=== PATIENT | female | born 1950 | race Caucasian/White ===

== ENCOUNTER 2018-06-05 16:26 | Observation (INO) ==
[~2018-06-05 16:26] MED LIST: LIDOCAINE W/ SODIUM BICARB 0.5 ML SYR ONE; LIDOCAINE W/ SODIUM BICARB 0.5 ML SYR SUBD ONE; Lactated Ringers 1,000 ML PRIMARY IV ONE; Nasal Sanitizer POPSWAB ampule 3 AMP (Nozin) PREOP DOSE ENOS SCH; ceFAZolin Inj 2gm (Premix) 2 GM/50 ML BAG IV ONE
[2018-06-05] MEDS: Lactated Ringers 1,000 ML PRIMARY IV SCH ×2 (17:15→21:05)
[2018-06-05] MEDS ORDERED: EPINEPHrine Inj (1:1,000) 30mg/30ml vial ONE (17:18)
[2018-06-05] MEDS ORDERED: BUPivacaine Inj 0.25% PF - 10ml vial ONE ×2 (17:18→18:31)
[2018-06-05] MEDS ORDERED: MIDAZOLAM HCL 2 MG/2 ML VIAL ONE (17:27)
[2018-06-05] MEDS ORDERED: KETAMINE 100 MG/1 ML - 5 ML ONE (17:27)
[2018-06-05] MEDS ORDERED: fentaNYL Inj 100 MCG/2 ML VIAL ONE (17:27)
[2018-06-05] MEDS ORDERED: PROPOFOL 10 MG/1 ML (200 MG/20 ML) VIAL IV ONE (17:35)
[2018-06-05] MEDS ORDERED: FAMOTIDINE 20 MG/2 ML VIAL IVP ONE (18:00)
[2018-06-05] MEDS ORDERED: BETAMET ACET/BETAMET NA PH 6 MG/1 ML - 5 ML ONE (18:31)
[2018-06-05] MEDS ORDERED: Prochlorperazine Edisylate Inj 10mg/2ml vial IVP PRN (19:05)
[2018-06-05] MEDS ORDERED: HYDROmorphone 2 MG/1 ML IVP PRN (19:05)
[2018-06-05] MEDS ORDERED: LIDOCAINE W/ SODIUM BICARB 0.5 ML SYR SUBD PRN (19:05)
[2018-06-05] MEDS ORDERED: ATROPINE SULFATE 0.4 MG/1 ML VIAL IVP PRN (19:05)
--- NOTE | 2018-06-05 19:07 | CRNA.PROGR ---
Anesthesia Time - Procedure/Recovery Time Start Date: 06/05/18 End Date: 06/05/18 Anesthesia : Time In: 17:40 Anesthesia : Time Out: 18:45 Anesthesia : Total Time: 65 - Total Anesthesia Time Total Anesthesia Time (minutes): 65 - Other Weight: 106.141 kg Height: 5 ft 7 in Body Mass Index (BMI): 36.6 Physical Status: P3 Anesthesia Type: General Anesthesia : LMA
--- NOTE | 2018-06-05 19:08 | CRNA.PROGR ---
Post Anesthesia Phase II - Post Anesthesia Phase II Patient Stable and Discharged To: Phase II Care Assumed By Surgeon: Kayden Browning MD Temperature: 98.2 F Pulse Rate: 83 Respiratory Rate: 23 Blood Pressure: 158/72 Pulse Ox: 97 Total Jose Score at Discharge: 9 Post Anesthesia Discharge Criteria Met: Yes Additional Details: Treated for nausea/emesis with compazine.
[2018-06-05] MEDS ORDERED: Prochlorperazine Edisylate Inj 10mg/2ml vial ONE (19:13)
[2018-06-05] MEDS ORDERED: Lactated Ringers 1,000 ML PRIMARY IV SCH (19:15)
[2018-06-05] MEDS ORDERED: HYDROcodone-APAP 7.5 MG-325 MG TABLET PO SCH (20:00)
[2018-06-05] MEDS ORDERED: ONDANSETRON 4 MG/2 ML VIAL IVP PRN (20:56)
[2018-06-05] MEDS ORDERED: Lactated Ringers 1,000 ML PRIMARY IV ONE (21:12)
[2018-06-05] MEDS ORDERED: FLUTICASONE FUROATE 50 MCG IH SCH (23:00)
[2018-06-05] MEDS ORDERED: SCOPOLAMINE HYDROBROMIDE 1.5 MG - 1 EACH PATCH TRANSDERM ONE (23:00)
--- NOTE | 2018-06-05 23:08 | DI ---
EXAM: XR Chest, 1 View CLINICAL HISTORY: ITS.REASON hypoxia Physician Notes: Tech Comments: TECHNIQUE: Frontal view of the chest. COMPARISON: No relevant prior studies available. FINDINGS: Lungs: Unremarkable. No consolidation. Pleural space: Unremarkable. No pneumothorax. Heart: Unremarkable. No cardiomegaly. Mediastinum: Unremarkable. Bones/joints: Unremarkable. IMPRESSION: Normal exam for age.
--- NOTE | 2018-06-05 23:12 | PDOC ---
HPI - History of Present Illness Date of Service: 06/05/18 Time of Service: 23:10 Chief Complaint: Hypoxic after surgery History of Present Illness: This very pleasant 67-year-old female with a history of borderline diabetes, hypertension, and recent left-sided meniscal tear which was repaired in the operating room today under arthroscopic surgery by Dr. Browning. Please see his note regarding the procedure. Postoperatively, the patient developed hypoxia and required oxygen. She does not have oxygen at home. She does not have any history of obstructive sleep apnea although her does report that she snores at night. She denied any chest pain, but has had some nausea and vomiting. 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 She had chronic nausea and vomiting develop and persist for about 4-1/2 years and it finally resolved around mid 2015. She states that the nausea and vomiting came back after his sinus surgery, and scopolamine seemed to help her. She did not think to bring it down with her today. She states that she is feeling somewhat better and is now down to 3 L per nasal cannula oxygen. I did have an x-ray done and on my view of the chest x-ray, there may be some left-sided atelectasis in the bases. She just got Zofran which seems to be helping with her nausea to some degree. She states to me that she's had a hard time coming out of anesthesia on the last few surgery she' s had. She does not have any underlying breathing disorder such as asthma or COPD, and states that she does not have any problems with excessive daytime sleepiness. 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 Past Medical History Medical History: 1. Diabetes mellitus type II. 2. Hypertension. 3. Meniscal tear. 4. Hypercholesterolemia Surgical History: 1. Neck surgery 2. 2. Meniscal repair today on left knee. 3. Hysterectomy. 4. Cholecystectomy Pertinent Family History: No history of diabetes or heart disease. Past Social History: Does not smoke or drink. for 50 years. Has children and one son unfortunately has had some problems with valvular heart disease. 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 Lives in [place], [place]. Tobacco Use: Never Smoker In the Past 12 Months, Have Used or Abuse Any of the Following Substance: None Medication / Allergies Home Medications: Home Medications 3 Medication Instructions Recorded Confirmed Type Amlodipine Besylate [Norvasc] 5 mg PO DAILY 06/04/18 06/04/18 History Aspirin [Aspir 81] 81 mg PO DAILY 06/04/18 06/04/18 History Atorvastatin Calcium [Lipitor] 20 mg PO DAILY 06/04/18 06/04/18 History Butalbital/Acetaminophen 50 mg PO PRN 06/04/18 06/04/18 History [Butalbital-Acetaminophn 50-325] Fluticasone Furoate [Arnuity 50 mcg IH PRN 06/04/18 06/04/18 History Ellipta] Lansoprazole Solutab Tab 30 mg PO DAILY 06/04/18 06/04/18 History [Prevacid Solutab Tab] Levalbuterol Neb Soln [Xopenex Neb 1.25 mg NEB PRN 06/04/18 06/04/18 History Soln] Losartan Potassium 100 mg PO DAILY 06/04/18 06/04/18 History Metformin HCl [Metformin HCl ER] 500 mg PO BID 06/04/18 06/04/18 History Montelukast Sodium [Singulair] 10 mg PO DAILY 06/04/18 06/04/18 History Promethazine HCl [Phenergan] 25 mg PO DAILY PRN 06/04/18 06/04/18 History Hydrocodone/Acetaminophen 1 - 2 ea PO Q4H PRN #40 tab 06/05/18 Rx [Hydrocodon-Acetaminoph 7.5-325] Allergies/Adverse Reactions: Allergies 3 Allergy/AdvReac Type Severity Reaction Status Date / Time dexamethasone Allergy NOT Verified 06/04/18 17:03 APPLICABLE gabapentin Allergy NOT Verified 06/04/18 17:03 APPLICABLE levofloxacin [From Levaquin] Allergy NOT Verified 06/04/18 17:03 APPLICABLE Review of Systems - Respiratory Respiratory: REPORTS: Negative System Review - Cardiovascular Cardiovascular: REPORTS: Negative System Review - Gastrointestinal Gastrointestinal / Abdominal: REPORTS: Nausea, Vomiting (Have happened chronically and intermittently and seemsto happen after surgery.) - Genitourinary Genitourinary: REPORTS: Negative System Review Exam - Vitals Vital Signs: Vital Signs Temperature 97.2 F Temperature Source Temporal Artery Scan Pulse Rate [Pulse Oximeter 90 Left] Pulse Rate 74 Respiratory Rate 15 Blood Pressure [Left Arm] 131/60 Blood Pressure 121/55 Pulse Ox 97 Oxygen Flow Rate 2 Oxygen Delivery Method Nasal Cannula Height 5 ft 7 in Weight 234 lb - General General Appearance: No Acute Distress, Cooperative - Head Head Exam: Normal Inspection, Normocephalic, Atraumatic - Eye Eye Exam: POSITIVE: No Scleral Icterus - ENT ENT Exam: POSITIVE: Mucous Membranes Dry - Respiratory Respiratory Exam: POSITIVE: Clear to Auscultation - Bilaterally, Breathing Non Labored - Cardiovascular Cardiovascular Exam: POSITIVE: RRR, No Murmur, No Clicks, No Gallops, No Rubs, No JVD - GI/Abdominal GI/Abdominal Exam: POSITIVE: Normal Bowel Sounds, Non Tender, Non Distended, Soft - Rectal Rectal Exam: POSITIVE: Deferred - External Exam: POSITIVE: Deferred Exam: POSITIVE: Deferred - Extremities Extremities Exam: POSITIVE: No Clubbing Present, No Edema Present, No Cyanosis Present Additional Extremities Exam Details: Left knee is dressed, dressing is clean, dry, intact - Neurological Neurological Exam: POSITIVE: Alert, Oriented x 3, No Facial Droop, Speech Intact / Clear - Psychiatric Psychiatric Exam: POSITIVE: Normal Affect, Normal Mood - Integumentary Additional Integumentary Exam Details: I did not notice any rash, specifically no petechial rash. Results - Labs Additional Lab Results: I am going to order a CBC with differential, compress metabolic panel, and a brain natruretic peptide (NT proBNP) Assessment and Plan - Patient Problems (1) Postoperative hypoxia Current Visit: Yes Status: Acute Code(s): R09.02 - Hypoxemia; Z98.890 - Other specified postprocedural states (2) Hypertension Current Visit: Yes Status: Acute Code(s): I10 - Essential (primary) hypertension Qualifiers: Hypertension type: essential hypertension Qualified Code(s): I10 - Essential (primary) hypertension (3) Diabetes Current Visit: Yes Status: Acute Code(s): E11.9 - Type 2 diabetes mellitus without complications Qualifiers: Diabetes mellitus type: type 2 Diabetes mellitus complication status: without complication (4) Acute meniscal tear of left knee Current Visit: Yes Status: Acute Code(s): S83.207A - Unspecified tear of unspecified meniscus, current injury, left knee, initial encounter - Assessment / Plan Additional Assessment/Plan Details: Overall, based on history and physical exam, I think that this is likely related to postoperative hypoxia from anesthesia. On the chest x-ray, there is no evidence of pneumonia and no evidence of aspiration pneumonia specifically. I suspect that she has some atelectasis based on the chest x-ray and is probably in need of incentive spirometry. I will order some incentive spirometry. We'll check a CBC and a CMP and a brain natruretic peptide (NT proBNP) in morning. If there is any elevation in NT proBNP, I would recommend an echocardiogram but that could be done on an outpatient basis. Given her history of snoring, she certainly could have obstructive sleep apnea which I do see contributive to postoperative hypoxia in cases in the past, and I would recommend that the patient have an outpatient sleep study at the purview of her primary care provider, Dr. Cosby, in [place], [place]. Scopolamine patch for the nausea and vomiting as this is working for her in the past. Thank you for this consult, will be our pleasure to continue to advise on medical conditions during the patient's hospital stay for this meniscal surgery.
--- NOTE | 2018-06-05 23:43 | EKG ---
[address] [address] Measurements Intervals [place] Rate: 85 P: 43 NC: 207 QRS: 11 QRSD: 97 T: 55 QT: 390 QTc: 432 Interpretive Statements SINUS RHYTHM WITH SINUS ARRHYTHMIA NONSPECIFIC T-WAVE ABNORMALITY No previous ECG available for comparison Electronically Signed On 06-06-18 09:25:08 MST by Momo Morgan MD [email or web address]
[2018-06-05] MEDS: HYDROcodone-APAP 7.5 MG-325 MG TABLET PO PRN (23:51)
[2018-06-06 00:17] LABS: VENOUS PH 7.35 (7.32-7.42)
[2018-06-06] MEDS: Lactated Ringers 1,000 ML PRIMARY IV SCH ×2 (02:06→10:47)
[2018-06-06] MEDS: HYDROcodone-APAP 7.5 MG-325 MG TABLET PO PRN ×3 (03:39→12:58)
[2018-06-06 05:51] LABS: BASOPHILS # (AUTO) 0.02 10*3/UL; BASOPHILS % (AUTO) 0.2 % (0-1); EOSINOPHILS # (AUTO) 0.01 10*3/UL; EOSINOPHILS % (AUTO) 0.1 % (0-8); Hematocrit [HCT] 40.9 % (37.0-47.0); Hemoglobin [HGB] 13.1 g/dL (12.0-16.0); LYMPHOCYTES # (AUTO) 1.37 10*3/uL; MEAN CORPUSCULAR HEMOGLOBIN 29.2 PG (27-31); MEAN CORPUSCULAR VOLUME 91.1 FL (81-99); MONOCYTES # (AUTO) 0.16 10*3/UL (0.3-0.8); MONOCYTES % (AUTO) 1.4 % (5-15); NEUTROPHILS # (AUTO) 10.23 10*3/UL; NEUTROPHILS % (AUTO) 86.5 % (50-80); RED BLOOD COUNT 4.49 10^6/uL (4.20-5.40)
[2018-06-06 06:07] LABS: BLOOD UREA NITROGEN 14 mg/dL (7-22); SERUM ALBUMIN 4.2 g/dL (3.5-4.8)
[2018-06-06 06:31] LABS: PLATELET MORPHOLOGY COMMENT NORMAL MORPHOLOGY (NORM); RBC MORPHOLOGY COMMENT NORMAL MORPHOLOGY (NORM); WBC MORPHOLOGY COMMENT NORMAL MORPHOLOGY (NORM)
[2018-06-06] MEDS ORDERED: LANSOPRAZOLE 30 MG SOLUTAB PO SCH (07:00)
[2018-06-06 07:47] VITALS: BP 172/90; TEMP 97.6; O2SAT 93
--- NOTE | 2018-06-06 08:45 | ORTHO.PROG ---
Last Taken Vital Signs: Vital Signs - Last Taken Temperature 97.6 F 06/06/18 07:46 Pulse Rate 102 H 06/06/18 07:46 Respiratory Rate 20 06/06/18 07:46 Blood Pressure 172/90 06/06/18 07:46 Pulse Ox 93 06/06/18 07:46 Subjective: comfortable off of O2 Objective: comfortable at rest Intake and Output (24hr x 4 totals) 06/04/18 06/05/18 06/06/18 06/07/18 05:59 05:59 05:59 05:59 Intake Total 2551 / 2551 Output Total 1720 / 1720 900 / 900 Balance 831 / 831 -900 / -900 Abnormal Lab Results (Last 24 Hours) Range/Units 06/06/18 06/06/18 06/06/18 00:08 05:10 05:10 WBC (4.8-10.8) 10^3/uL 11.81 H MCHC (33-37) g/dL 32.0 L Plt Count (140-350) 10*3/uL 434 H Neut % (Auto) (50-80) % 86.5 H [place] % (Auto) (5-15) % 1.4 L [place] # (Auto) (0.3-0.8) 10*3/UL 0.16 L VBG pCO2 (45-55) mmHg 44 L Glucose (78-110) mg/dL 156 H Calculated Osmolality (267-292) mOsm/kg 295.0 H Total Bilirubin (0.3-1.2) mg/dL 0.2 L NT-Pro-B Natriuret Pep (0-125) PG/ML Range/Units 06/06/18 05:10 WBC (4.8-10.8) 10^3/uL MCHC (33-37) g/dL Plt Count (140-350) 10*3/uL Neut % (Auto) (50-80) % [place] % (Auto) (5-15) % [place] # (Auto) (0.3-0.8) 10*3/UL VBG pCO2 (45-55) mmHg Glucose (78-110) mg/dL Calculated Osmolality (267-292) mOsm/kg Total Bilirubin (0.3-1.2) mg/dL NT-Pro-B Natriuret Pep (0-125) PG/ML 445 H Vital Signs (24 hrs) Temp Pulse Pulse Resp BP BP Pulse Ox 06/06/18 07:46 97.6 F 102 H 20 172/90 93 06/06/18 05:36 92 06/06/18 04:18 97.7 F 101 H 11 L 127/77 95 06/06/18 03:00 94 06/06/18 00:03 97.6 F 93 19 127/89 94 06/05/18 23:00 87 06/05/18 21:53 90 15 131/60 97 06/05/18 21:20 78 13 128/76 95 06/05/18 21:12 97.2 F 84 16 131/60 96 06/05/18 21:00 74 121/55 93 06/05/18 20:45 74 126/56 94 06/05/18 20:30 66 116/50 95 06/05/18 20:15 73 118/59 92 06/05/18 20:00 78 141/67 97 06/05/18 19:45 66 121/62 91 06/05/18 19:30 94 127/54 95 06/05/18 19:15 69 114/69 94 06/05/18 19:08 98.2 F 83 23 158/72 97 06/05/18 19:00 70 118/68 96 06/05/18 18:45 97.2 F 79 135/75 92 06/05/18 17:53 98.2 F 83 23 158/72 97 Vital Signs (24 hrs) Temp Pulse Pulse Resp BP BP Pulse Ox 06/06/18 07:46 97.6 F 102 H 20 172/90 93 06/06/18 05:36 92 06/06/18 04:18 97.7 F 101 H 11 L 127/77 95 06/06/18 03:00 94 06/06/18 00:03 97.6 F 93 19 127/89 94 06/05/18 23:00 87 06/05/18 21:53 90 15 131/60 97 06/05/18 21:20 78 13 128/76 95 06/05/18 21:12 97.2 F 84 16 131/60 96 06/05/18 21:00 74 121/55 93 06/05/18 20:45 74 126/56 94 06/05/18 20:30 66 116/50 95 06/05/18 20:15 73 118/59 92 06/05/18 20:00 78 141/67 97 06/05/18 19:45 66 121/62 91 06/05/18 19:30 94 127/54 95 06/05/18 19:15 69 114/69 94 06/05/18 19:08 98.2 F 83 23 158/72 97 06/05/18 19:00 70 118/68 96 06/05/18 18:45 97.2 F 79 135/75 92 06/05/18 17:53 98.2 F 83 23 158/72 97 Assessment: satting well Plan: DC home per hospitalist recs
[2018-06-06] MEDS ORDERED: ATORVASTATIN 20 MG TABLET PO SCH ×2 (09:00→21:00)
[2018-06-06] MEDS ORDERED: AmLODIPine Tab 5 MG TABLET PO SCH (09:00)
[2018-06-06] MEDS ORDERED: ASPIRIN EC 81 MG TABLET PO SCH (09:00)
[2018-06-06] MEDS ORDERED: LOSARTAN 50 MG TABLET PO SCH (09:00)
[2018-06-06] MEDS ORDERED: metFORMIN ER 500 MG TABLET PO SCH (09:00)
[2018-06-06] MEDS ORDERED: Montelukast Tab 10 MG TAB PO SCH (09:00)
--- NOTE | 2018-06-06 11:11 | DCSUMMARY ---
Hospitalization Summary Admit Date: 06/05/2018 Discharge Date: 06/06/18 Primary Diagnosis:: postoperative hypoxia, resolved Hospital Course: This very pleasant 67-year-old female who had a left meniscal injury that was repaired by Dr. Browning. See his notes on that surgical procedure. Postoperatively, the patient was persistently hypoxic and she was admitted to the hospitalist service for observation for postoperative hypoxia. The patient has never had any a diagnosis of obstructive sleep apnea but does snore frequently according to her . She does not have any other features of sleep apnea in terms of waking up gasping for air or daytime somnolence. 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 A chest x-ray was negative for pneumonia but on my view was consistent with atelectasis. There was no evidence of pneumonia clinically either. The radiologist read the chest x-ray is normal. EKG was normal and troponin was negative. A venous blood gas did not reveal significant hypercapnia. A BNP menses NT proBNP), was minimally elevated. I started incentive spirometry and by the morning the patient had oxygen saturations on room air on my examination of 94-97%. The patient states her knee pain is controlled at this point, she denies any nausea or vomiting and states that that has improved significantly with scopolamine patch. And she denies any chest pain or shortness of breath. She would like to go home. Assessment and Plan: 1. As per discharge assessments noted 2. Disposition: Patient is discharged home 3. Condition on discharge, stable and improved. 4. Diet: regular diet 5. Activities: Resume activities as per Dr. Browning's instructions 6. Follow-Up: 1. I recommend seeing Dr. Cosby in [address] Browning as per his instructions 7. Medications at the Time of Discharge: Home Medications 3 Medication Instructions Recorded Confirmed Type Amlodipine Besylate [Norvasc] 5 mg PO DAILY 06/04/18 06/04/18 History Aspirin [Aspir 81] 81 mg PO DAILY 06/04/18 06/04/18 History Atorvastatin Calcium [Lipitor] 20 mg PO DAILY 06/04/18 06/04/18 History Butalbital/Acetaminophen 50 mg PO PRN 06/04/18 06/04/18 History [Butalbital-Acetaminophn 50-325] Fluticasone Furoate [Arnuity 50 mcg IH PRN 06/04/18 06/04/18 History Ellipta] Lansoprazole Solutab Tab 30 mg PO DAILY 06/04/18 06/04/18 History [Prevacid Solutab Tab] Levalbuterol Neb Soln [Xopenex Neb 1.25 mg NEB PRN 06/04/18 06/04/18 History Soln] Losartan Potassium 100 mg PO DAILY 06/04/18 06/04/18 History Metformin HCl [Metformin HCl ER] 500 mg PO BID 06/04/18 06/04/18 History Montelukast Sodium [Singulair] 10 mg PO DAILY 06/04/18 06/04/18 History Promethazine HCl [Phenergan] 25 mg PO DAILY PRN 06/04/18 06/04/18 History Hydrocodone/Acetaminophen 1 - 2 ea PO Q4H PRN #40 tab 06/05/18 Rx [Hydrocodon-Acetaminoph 7.5-325] HYDROcodone/APAP 7.5/325 Tab 1 - 2 tab PO Q4H PRN #30 tab 06/06/18 Rx [[place] 7.5/325 Tab] Scopolamine 1.5mg Patch 1 ea TD Q72H PRN #2 patch.td72 06/06/18 Rx [Transderm-Scop 1.5mg Patch] Exam - Vitals Vital Signs: Vital Signs Temperature 97.6 F Temperature Source Temporal Artery Scan Pulse Rate [Pulse Oximeter 102 Left] Pulse Rate 94 Respiratory Rate 20 Blood Pressure [Left Arm] 172/90 Blood Pressure 121/55 Pulse Ox 93 Oxygen Flow Rate 1.5 Oxygen Delivery Method Nasal Cannula Height 5 ft 7 in Weight 234 lb - General General Appearance: No Acute Distress, Cooperative - Eye Eye Exam: POSITIVE: No Scleral Icterus - ENT ENT Exam: POSITIVE: Mucous Membranes Moist - Neck Neck Exam: JVP is not Raised - Respiratory Respiratory Exam: POSITIVE: Clear to Auscultation - Bilaterally, Breathing Non Labored - Cardiovascular Cardiovascular Exam: POSITIVE: RRR, No Murmur, No Clicks, No Gallops, No Rubs, No JVD - GI/Abdominal GI/Abdominal Exam: POSITIVE: Normal Bowel Sounds, Non Tender, Non Distended, Soft - Extremities Extremities Exam: POSITIVE: No Clubbing Present, No Edema Present, No Cyanosis Present Additional Extremities Exam Details: Left knee is bandaged. Bandages clean, dry, intact - Neurological Neurological Exam: POSITIVE: Alert, Oriented x 3, No Facial Droop, Speech Intact / Clear - Psychiatric Psychiatric Exam: POSITIVE: Normal Affect, Normal Mood Data Peritnent Studies: Laboratory Results 06/05/18 06/06/18 06/06/18 Range/Units 00:00 00:08 05:10 WBC 11.81 H (4.8-10.8) 10^3/uL RBC 4.49 (4.20-5.40) 10^6/uL Hgb 13.1 (12.0-16.0) g/dL Hct 40.9 (37.0-47.0) % MCV 91.1 (81-99) FL MCH 29.2 (27-31) PG MCHC 32.0 L (33-37) g/dL RDW Std Deviation 47.5 (39-50) fL RDW Coeff of [place] 14.4 (11.5-14.5) % Plt Count 434 H (140-350) 10*3/uL MPV 9.0 (7.4-12.2) FL Immature Gran % (Auto) 0.2 (0-5) % Neut % (Auto) 86.5 H (50-80) % Lymph % (Auto) 11.6 (10-50) % [place] % (Auto) 1.4 L (5-15) % Eos % (Auto) 0.1 (0-8) % Baso % (Auto) 0.2 (0-1) % Immature Gran # (Auto) 0.02 10*3/UL Neut # (Auto) 10.23 10*3/UL Lymph # (Auto) 1.37 10*3/uL [place] # (Auto) 0.16 L (0.3-0.8) 10*3/UL Eos # (Auto) 0.01 10*3/UL Baso # (Auto) 0.02 10*3/UL WBC Morphology Comment Normal morphology (NORM) Plt Morphology Comment Normal morphology (NORM) RBC Morph Comment Normal morphology (NORM) VBG pH 7.35 (7.32-7.42) VBG pCO2 44 L (45-55) mmHg VBG HCO3 24 (22-26) mmol/L VBG Base Excess -2 (-2-2) MMOL/L Sodium (135-145) meq/L Potassium (3.8-5.2) meq/L Chloride (98-112) meq/L Carbon Dioxide (23-33) meq/L Anion Gap (5-20) BUN (7-22) mg/dL Creatinine (0.50-1.20) mg/dL Estimated GFR (>60 ml/min/1.73m(2)) BUN/Creatinine Ratio (6-20) Glucose (78-110) mg/dL Calculated Osmolality (267-292) mOsm/kg Calcium (8.7-10.7) mg/dL Total Bilirubin (0.3-1.2) mg/dL AST (8-39) IU/L ALT (9-52) IU/L Alkaline Phosphatase (38-126) IU/L Troponin I 0.012 (< 0.040) ng/mL NT-Pro-B Natriuret Pep (0-125) PG/ML Total Protein (6.1-8.0) g/dL Albumin (3.5-4.8) g/dL Globulin (2.50-4.10) g/dL Albumin/Globulin Ratio (1.3-2.0) mg/g 06/06/18 06/06/18 Range/Units 05:10 05:10 WBC (4.8-10.8) 10^3/uL RBC (4.20-5.40) 10^6/uL Hgb (12.0-16.0) g/dL Hct (37.0-47.0) % MCV (81-99) FL MCH (27-31) PG MCHC (33-37) g/dL RDW Std Deviation (39-50) fL RDW Coeff of [place] (11.5-14.5) % Plt Count (140-350) 10*3/uL MPV (7.4-12.2) FL Immature Gran % (Auto) (0-5) % Neut % (Auto) (50-80) % Lymph % (Auto) (10-50) % [place] % (Auto) (5-15) % Eos % (Auto) (0-8) % Baso % (Auto) (0-1) % Immature Gran # (Auto) 10*3/UL Neut # (Auto) 10*3/UL Lymph # (Auto) 10*3/uL [place] # (Auto) (0.3-0.8) 10*3/UL Eos # (Auto) 10*3/UL Baso # (Auto) 10*3/UL WBC Morphology Comment (NORM) Plt Morphology Comment (NORM) RBC Morph Comment (NORM) VBG pH (7.32-7.42) VBG pCO2 (45-55) mmHg VBG HCO3 (22-26) mmol/L VBG Base Excess (-2-2) MMOL/L Sodium 141 (135-145) meq/L Potassium 4.6 (3.8-5.2) meq/L Chloride 106 (98-112) meq/L Carbon Dioxide 26 (23-33) meq/L Anion Gap 9 (5-20) BUN 14 (7-22) mg/dL Creatinine 0.7 (0.50-1.20) mg/dL Estimated GFR > 60 (>60 ml/min/1.73m(2)) BUN/Creatinine Ratio 20.00 (6-20) Glucose 156 H (78-110) mg/dL Calculated Osmolality 295.0 H (267-292) mOsm/kg Calcium 9.1 (8.7-10.7) mg/dL Total Bilirubin 0.2 L (0.3-1.2) mg/dL AST 26 (8-39) IU/L ALT 28 (9-52) IU/L Alkaline Phosphatase 73 (38-126) IU/L Troponin I (< 0.040) ng/mL NT-Pro-B Natriuret Pep 445 H (0-125) PG/ML Total Protein 7.4 (6.1-8.0) g/dL Albumin 4.2 (3.5-4.8) g/dL Globulin 3.2 (2.50-4.10) g/dL Albumin/Globulin Ratio 1.30 (1.3-2.0) mg/g Procedures: [address] [facility] [place] [id number] PH: DD: [phone] FAX: [phone] ~DIAGNOSTIC IMAGING REPORT~ Patient: GABO LENZ : 1950 Sex: F Age: 67 Exam Name: XR CXR 1VW Exam Date: 06/05/18 Report # : [id number] CPT Code: 08415 EMR/MR #: [id number] Ordering: LINA QUEEN Admiting: MARIA ANTONIA BROWNING MD Primary: NONE,NONE Attending: MARIA ANTONIA BROWNING MD Signed EXAM: XR Chest, 1 View CLINICAL HISTORY: ITS.REASON hypoxia Physician Notes: Tech Comments: TECHNIQUE: Frontal view of the chest. COMPARISON: No relevant prior studies available. FINDINGS: Lungs: Unremarkable. No consolidation. Pleural space: Unremarkable. No pneumothorax. Heart: Unremarkable. No cardiomegaly. Mediastinum: Unremarkable. Bones/joints: Unremarkable. IMPRESSION: Normal exam for age. Dictated By: Vicente Patino MD Signed By: 06/05/182307 Vicente Patino MD Patient Problems - Patient Problem List (1) Postoperative hypoxia Current Visit: Yes Status: Acute Code(s): R09.02 - Hypoxemia; Z98.890 - Other specified postprocedural states Category: Medical (2) Hypertension Current Visit: Yes Status: Acute Code(s): I10 - Essential (primary) hypertension Qualifiers: Hypertension type: essential hypertension Qualified Code(s): I10 - Essential (primary) hypertension Category: Medical (3) Diabetes Current Visit: Yes Status: Acute Code(s): E11.9 - Type 2 diabetes mellitus without complications Qualifiers: Diabetes mellitus type: type 2 Diabetes mellitus complication status: without complication Category: Medical (4) Acute meniscal tear of left knee Current Visit: Yes Status: Acute Code(s): S83.207A - Unspecified tear of unspecified meniscus, current injury, left knee, initial encounter Qualifiers: Encounter type: initial encounter Qualified Code(s): S83.207A - Unspecified tear of unspecified meniscus, current injury, left knee, initial encounter Category: Medical
[2018-06-06 13:14] VITALS: RESP 16
--- NOTE | 2018-06-06 15:08 | PT AM DAY ---
AM - Physical Therapy O: The patient ambulated 50 feet to the stairs and then ascended and descended three stairs. The patient then ambulated 50 feet back to her room and was left in chair. P: No further therapy is indicated at this time. MTDD
[2018-06-08] MEDS ORDERED: [UNRECOGNIZED DRUG - OTHER] TRANSDERM SCH (23:00)
== END 2018-06-06 13:24 | disposition home or self-care (01) ==
LOC: OR 16:26 → MED/SURG 16:26
PROVIDERS: ADMIT Orthopaedic Surgery; ATTEND Orthopaedic Surgery